=== PATIENT | male | born 1950 | race Caucasian/White ===

== ENCOUNTER 2024-03-01 08:40 | Inpatient (IN) | payer MEDICARE, OTHER ==
[~2024-03-01] VITALS: Ht 177.8 cm; Wt 93.5 kg
[2024-03-01 09:12] LABS: BASOPHILS % (AUTO) 0.5 % (0.0-2.0); EOSINOPHILS # (AUTO) 0.3 K/uL (0.0-0.7); EOSINOPHILS % (AUTO) 4.3 % (0.0-6.0); HEMATOCRIT 41 % (39-51); HEMOGLOBIN 14.3 g/dL (13.5-17.5); LYMPHOCYTES # (AUTO) 2.1 K/uL (0.8-4.8); MEAN CORPUSCULAR HEMOGLOBIN 30 PG (26.0-33.0); MEAN CORPUSCULAR HGB CONC 35 g/dl (31.0-36.0); MEAN CORPUSCULAR VOLUME 86 fL (80-96); MONOCYTES # (AUTO) 0.4 K/uL (0.1-1.30); MONOCYTES % (AUTO) 6.2 % (2.0-12.0); NEUTROPHILS # (AUTO) 3.8 K/uL (1.8-8.9); PLATELET COUNT (AUTO) 173 K/uL (150-450); RED BLOOD CELL COUNT(AUTO) 4.81 MIL/uL (4.5-6.0); RED CELL DISTRIBUTION WIDTH 12.8 % (11.5-15.0); WHITE BLOOD COUNT (AUTO) 6.7 K/uL (4.3-11.0)
[2024-03-01 09:22] LABS: CALCIUM, SERUM 9.1 mg/dL (8.5-10.1); CARBON DIOXIDE 26 mmol/L (21-32); CHLORIDE 105 mmol/L (98-107); CREATININE 1.3 mg/dL (0.6-1.3); GLUCOSE 118 mg/dL (74-106); POTASSIUM 4.4 mmol/L (3.5-5.1); SODIUM SERUM 138 mmol/L (136-145); UREA NITROGEN, BLOOD 21 mg/dL (7-18)
[2024-03-01 09:25] LABS: INR 0.99 (0.91-1.10); PARTIAL THROMBOPLASTIN TIME 32.6 SEC (24.3-34.3); PROTHROMBIN TIME 10.5 SECS (9.2-11.1)
[2024-03-01] MEDS ORDERED: RAMI5CAP66 PO (09:43)
[2024-03-01] MEDS ORDERED: ERGO500040 PO (09:43)
[2024-03-01] MEDS ORDERED: MEMA7CAP2 PO (09:43)
[2024-03-01] MEDS ORDERED: OMEP40CA21 PO (09:43)
[2024-03-01] MEDS ORDERED: TAMS-12 PO (09:43)
[2024-03-01] MEDS ORDERED: LEVO5TAB13 PO (09:43)
[2024-03-01 09:44] LABS: APPEARANCE,URINE Clear (CLEAR); BILIRUBIN,URINE Negative (NEGATIVE); BLOOD, URINE Small Ery/uL (NEGATIVE); COLOR,URINE YELLOW (YELLOW); KETONES,URINE Negative (NEGATIVE); LEUKOCYTE ESTERASE ,URINE Negative (NEGATIVE); NITRITE, URINE Negative (NEGATIVE); PH,URINE 5.5 (5.0-8.0); PROTEIN,URINE Negative (NEGATIVE); UGLUCOSE Negative (NEGATIVE); UROBILINOGEN,URINE 0.2 EU/dL (0.2)
[2024-03-01] MEDS ORDERED: GABA100C PO (09:44)
[2024-03-01] MEDS ORDERED: ATOR10TA PO (09:44)
[2024-03-01] MEDS ORDERED: IBUP-1957 MT (09:44)
[2024-03-01] MEDS ORDERED: EZET10TA15 PO (09:44)
[2024-03-01] MEDS ORDERED: ALPR0.5T8 PO (09:44)
[2024-03-01] MEDS ORDERED: AZIL40TA PO (09:44)
[2024-03-01] MEDS ORDERED: CLON0.1T PO (09:44)
[2024-03-01] MEDS ORDERED: ATEN50TA PO (09:44)
[2024-03-01 10:15] LABS: ADD URINE CULTURE NO; BACTERIA,URINE Rare /HPF (None Seen); SQUAMOUS EPITHELIAL CELL,UR Few /HPF (None Seen); WBC,URINE 0-2 /HPF (0-3)
[2024-03-01 10:30] VITALS: BP 137/77; TEMP 97.9; O2SAT 98
[2024-03-01] MEDS ORDERED: Z GUARD REMEDY 4 OZ OINT TP PRN (12:30)
[2024-03-01] MEDS ORDERED: CLONIDINE HCL 0.1 MG TABLET PO PRN (12:30)
[2024-03-01] MEDS ORDERED: ALPRAZOLAM 0.5 MG TABLET PO PRN (12:30)
[2024-03-01] MEDS ORDERED: ONDANSETRON HCL/PF 4 MG/2 ML VIAL IVP PRN (12:30)
[2024-03-01] MEDS ORDERED: ACETAMINOPHEN 325 MG TABLET PO PRN (12:30)
[2024-03-01] MEDS ORDERED: GABAPENTIN 100 MG CAPSULE PO PRN (12:30)
[2024-03-01] MEDS ORDERED: IBUPROFEN 400 MG TABLET PO PRN (12:30)
[2024-03-01] MEDS: ENOXAPARIN SODIUM 40 MG/0.4 ML DISP.SYRIN SQ SCH (12:45)
[2024-03-01 13:00] LABS: THYROID STIMULATING HORMONE 3.16 uIU/mL (0.358-3.74)
[2024-03-01 16:00] VITALS: BP 127/70; TEMP 97.9; O2SAT 97
[2024-03-01 20:00] VITALS: BP 139/75; TEMP 98.1; O2SAT 95
[2024-03-02] VITALS: BP 156/82; TEMP 98.1; O2SAT 98
[2024-03-02 04:00] VITALS: BP 134/75; TEMP 98.1; O2SAT 96
[2024-03-02 06:41] LABS: BASOPHILS % (AUTO) 0.4 % (0.0-2.0); EOSINOPHILS # (AUTO) 0.3 K/uL (0.0-0.7); EOSINOPHILS % (AUTO) 4.1 % (0.0-6.0); HEMATOCRIT 40 % (39-51); HEMOGLOBIN 14.3 g/dL (13.5-17.5); LYMPHOCYTES # (AUTO) 2.7 K/uL (0.8-4.8); MEAN CORPUSCULAR HEMOGLOBIN 30 PG (26.0-33.0); MEAN CORPUSCULAR HGB CONC 36 g/dl (31.0-36.0); MEAN CORPUSCULAR VOLUME 85 fL (80-96); MONOCYTES # (AUTO) 0.6 K/uL (0.1-1.30); MONOCYTES % (AUTO) 7.1 % (2.0-12.0); NEUTROPHILS # (AUTO) 4.7 K/uL (1.8-8.9); NEUTROPHILS % (AUTO) 56.4 % (43.0-81.0); PLATELET COUNT (AUTO) 170 K/uL (150-450); RED BLOOD CELL COUNT(AUTO) 4.73 MIL/uL (4.5-6.0); RED CELL DISTRIBUTION WIDTH 12.8 % (11.5-15.0); WHITE BLOOD COUNT (AUTO) 8.4 K/uL (4.3-11.0)
[2024-03-02 07:00] LABS: CALCIUM, SERUM 8.7 mg/dL (8.5-10.1); CREATININE 1.2 mg/dL (0.6-1.3); MAGNESIUM 1.9 mg/dL (1.8-2.4); PHOSPHORUS 3.4 mg/dL (2.5-4.9); POTASSIUM 4.2 mmol/L (3.5-5.1)
[2024-03-02 08:13] VITALS: BP 130/73; TEMP 97.7; O2SAT 96
[2024-03-02] MEDS: EZETIMIBE 10 MG TABLET PO SCH (08:42)
[2024-03-02] MEDS: ATENOLOL 50 MG TABLET PO SCH (08:43)
[2024-03-02] MEDS: LISINOPRIL (10MG) 10 MG TABLET PO SCH (08:44)
[2024-03-02] MEDS: PANTOPRAZOLE 40 MG TABLET.DR PO SCH (08:44)
[2024-03-02] MEDS: MEMANTINE HCL 5 MG TABLET PO SCH (08:44)
[2024-03-02] MEDS: ATORVASTATIN 10 MG TABLET PO SCH (08:44)
[2024-03-02] MEDS ORDERED: TAMSULOSIN 0.4 MG CAP.SR.24H PO SCH (09:00)
[2024-03-02 12:00] VITALS: BP 128/64; TEMP 98.1; O2SAT 99
[2024-03-02] MEDS ORDERED: DUTA0.5C PO (12:38)
[2024-03-08] MEDS ORDERED: ERGOCALCIFEROL (VITAMIN D 2) 50,000 UNIT CAPSULE PO SCH
== END 2024-03-02 13:45 | disposition home or self-care (01) | DRG 74 ==
LOC: ER 08:43 → MED 09:57 → TELE 18:45
PROVIDERS: ADMIT Nurse Practitioner Acute Care; ATTEND Nurse Practitioner Acute Care
DX: G90.8 Other disorders of autonomic nervous system (principal); H81.12 Benign paroxysmal vertigo, left ear; N40.0 Benign prostatic hyperplasia without lower urinary tract symptoms; I10 Essential (primary) hypertension; E78.5 Hyperlipidemia, unspecified; F03.A0 Unspecified dementia, mild, without behavioral disturbance, psychotic disturbance, mood disturbance, and anxiety; Z74.09 Other reduced mobility; T42.4X5A Adverse effect of benzodiazepines, initial encounter; T42.6X5A Adverse effect of other antiepileptic and sedative-hypnotic drugs, initial encounter; T44.6X5A Adverse effect of alpha-adrenoreceptor antagonists, initial encounter; Y92.009 Unspecified place in unspecified non-institutional (private) residence as the place of occurrence of the external cause; R90.89 Other abnormal findings on diagnostic imaging of central nervous system
CPT/HCPCS: 36415; 70450-TC; 70551-TC; 80048-TC; 80061-TC; 81001; 83735-TC; 84100-TC; 84443-TC; 84484-TC; 85025-TC; 85730-TC; 93307-TC; 97112-TC; 97116-TC; 97530-TC; G0378; J1650